=== PATIENT | male | born 1950 | race Caucasian/White ===

== ENCOUNTER → 2016-10-27 | Outpatient (CLI) | payer MEDICARE, BC ==
[2016-10-27 10:06] LABS: Anion Gap 12 mmol/L; Blood Urea Nitrogen 18 mg/dL (9-20); Calcium 9.1 mg/dL (8.4-10.2); Carbon Dioxide 20 mmol/L (22-30); Chloride 109 mmol/L (98-107); Glucose 102 mg/dL (74-99); Non-African American GFR(MDRD) >60 (>60 ml/min/1.73 sqM); Potassium 4.1 mmol/L (3.5-5.1); Sodium 141 mmol/L (137-145)
== END | disposition home or self-care (01) ==
LOC: LABWHC1 09:17
PROVIDERS: ATTEND Internal Medicine Cardiovascular Disease
DX: I25.10 Atherosclerotic heart disease of native coronary artery without angina pectoris (principal); I10 Essential (primary) hypertension; R06.02 Shortness of breath
CPT/HCPCS: 36415; 80048; 83880

== ENCOUNTER → 2017-07-30 | Outpatient (CLI) | payer MEDICARE, BC ==
[2017-07-30 08:05] LABS: Blood Urea Nitrogen 19 mg/dL (9-20)
== END | disposition home or self-care (01) ==
LOC: LABWHC1 07:00
PROVIDERS: ATTEND Internal Medicine Gastroenterology
DX: R74.8 Abnormal levels of other serum enzymes (principal)
CPT/HCPCS: 36415; 82565; 84520

== ENCOUNTER → 2019-12-13 | Outpatient (CLI) | payer BC, MEDICARE ==
[2019-12-13 16:53] LABS: Albumin 4.6 g/dL (3.80-4.90); Albumin/Globulin Ratio 1.53 (1.60-3.17); Bilirubin, Conjugated 0.3 mg/dL (0.20-0.40); Bilirubin,Unconjugated 0.7 mg/dL; Chol/HDL Ratio 4.64; LDL Cholesterol,Calculated 125.8 mg/dL (0.0-131.0); Total Protein 7.6 g/dL (6.2-8.2); VLDL Calculation 34.2 mg/dL (5.00-40.00)
== END | disposition home or self-care (01) ==
LOC: LABWHC1 09:59
PROVIDERS: ATTEND Internal Medicine Cardiovascular Disease
DX: I10 Essential (primary) hypertension (principal); E66.9 Obesity, unspecified; I25.10 Atherosclerotic heart disease of native coronary artery without angina pectoris; R01.1 Cardiac murmur, unspecified; F17.211 Nicotine dependence, cigarettes, in remission
CPT/HCPCS: 36415; 80061; 80076; 82550

== ENCOUNTER → 2020-12-31 | Outpatient (CLI) | payer MEDICARE, BC ==
--- NOTE | 2020-12-31 15:05 | XR ---
Bilateral hips HISTORY: Pain 2 views of each hip Bone mineralization and alignment are maintained. Joint spaces maintained. Probable vascular calcific ations noted incidentally. No fracture or dislocation. impression: No definite abnormality is evident
--- NOTE | 2020-12-31 15:06 | XR ---
Lumbosacral spine HISTORY: Pain Views of lumbosacral spine There is a dextroscoliosis centered at L2, rotatory component. No evident spondylolysis. Lumbar verte bral bodies show preserved height. Alignment is maintained. Loss of disc height is present interverte bral levels. Sclerosis in the posterior elements is consistent with facet arthropathy. Bone mineraliz ation is maintained. L5 is sacralized. Atherosclerotic vascular calcifications present in the aorta i liac distribution. IMPRESSION: Degenerative disc disease and facet arthropathy.
== END | disposition home or self-care (01) ==
LOC: RADXRMAIN 14:29
PROVIDERS: ATTEND Pediatrics
DX: M25.551 Pain in right hip (principal); M25.552 Pain in left hip; M51.36 Other intervertebral disc degeneration, lumbar region; M47.816 Spondylosis without myelopathy or radiculopathy, lumbar region
CPT/HCPCS: 72110; 73521

== ENCOUNTER → 2021-01-16 | Outpatient (CLI) | payer MEDICARE ==
--- NOTE | 2021-01-16 16:43 | CONS ---
CONSULTATION DATE OF SERVICE: 01/16/2021 This 70-year-old gentleman has been evaluated in [facility] for possible obstructive sleep apnea-hypopnea syndrome. HISTORY OF PRESENT ILLNESS/SLEEP-WAKE EVALUATION: Patient's usual sleep schedule is from 9 or 10 p.m. until 7 or 8 a.m. He sometimes has problems with falling asleep, although no TV in bedroom. He usually sleeps on the side position. He snores. No witnessed episodes of stopped breathing during sleep, but the patient wakes up from sleep 5 times with nocturia. Positive history of grinding teeth, according to patient. During the day he drinks about 6 cups of coffee. [place] Sleepiness Scale with this amount of caffeine is 6. PAST MEDICAL HISTORY: Positive for hypertension, acid reflux. PAST SURGICAL HISTORY: Cholecystectomy 5 years ago, hernia repair, tonsillectomy. CURRENT MEDICATIONS: 1. Omeprazole 40 mg once a day. 2. Amlodipine 10 mg once a day. 3. Cetirizine 10 mg once a day. 4. The patient also takes melatonin 5 mg at bedtime. SOCIAL HISTORY: Positive for smoking in the past. Quit smoking in 1988. Alcohol consumption occasional. FAMILY HISTORY: Positive for colon carcinoma and esophageal carcinoma. REVIEW OF SYSTEMS: No fevers. No double vision. No recent chest pain. No shortness of breath. No abdominal pain. No bleeding episodes. No blood in the urine. No seizure episodes. Multiple awakenings from sleep, episodes of tiredness and sleepiness during the day. PHYSICAL EXAMINATION: GENERAL: Pleasant gentleman without distress. VITAL SIGNS: BP 127/67, HR 70, RR 16, height 5 feet 9-1/2 inches, weight 281 pounds. Body mass index 40.9. Temperature 98.3, oxygen saturation at room air 97%. HEENT: PERRLA, EOMI, evaluation of oropharynx showed tongue protrudes midline. Low position of soft palate; Mallampati III to IV. NECK: Supple, no JVD. Thyroid is not palpable. Neck is wide; 18 inches in circumference. LUNGS: Clear to percussion and to auscultation. Good air exchange. No wheezing or rhonchi. HEART: S1, S2 regular. No murmurs, gallops, or rubs. ABDOMEN: Obese. EXTREMITIES: No clubbing or cyanosis. 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 Cranial nerves 2 to 7 intact. There is no fasciculation or atrophy. noted. No focal deficits observed. IMPRESSION: 1. Snoring, multiple awakenings from sleep with nocturia, extremely low position of soft palate, Mallampati III to IV, wide neck, 18 inches in circumference, episodes of sleepiness during the day while on 6 cups of coffee; obstructive sleep apnea- hypopnea syndrome. 2. Obesity; body mass index 40.9. 3. Hypertension. 4. Acid reflux. 5. Status post cholecystectomy 5 years ago. 6. Status post hernia repair. 7. Status post tonsillectomy. PLAN: 1. Polysomnography for evaluation of patient's breathing during sleep. 2. CPAP/BiPAP titration if sleep study confirms obstructive sleep apnea-hypopnea syndrome. 3. Preferable position during sleep on the side. 4. No driving if patient feels any sleepiness. 5. I will see patient for follow up visit to explain results of testing and following plan. Thank you very much for referring this patient for consultation. Sincerely, Chidi Garcia MD, PhD, FAASM Diplomat of [employer] Sleep Medicine [employer] of [employer] Medicare [facility] [place] MMODL / IJN: [id number] /
== END ==
LOC: SLEEP 15:24
PROVIDERS: ATTEND Internal Medicine
DX: G47.33 Obstructive sleep apnea (adult) (pediatric) (principal); E66.9 Obesity, unspecified; I10 Essential (primary) hypertension; K21.9 Gastro-esophageal reflux disease without esophagitis; Z68.41 Body mass index [BMI] 40.0-44.9, adult; Z90.49 Acquired absence of other specified parts of digestive tract; Z98.890 Other specified postprocedural states; Z90.89 Acquired absence of other organs
CPT/HCPCS: 99211

== ENCOUNTER → 2023-04-01 | Outpatient (CLI) | payer MEDICARE ==
[2023-04-01 16:16] LABS: Basophils # (A) 0.07 X 10*3/uL (0.00-0.10); Eosinophils # (A) 0.24 X 10*3/uL (0.04-0.35); Eosinophils % (A) 3.3 %; HGB 14.4 g/dL (13.0-17.0); Lymphocytes # (A) 2.16 X 10*3/uL (0.90-5.00); Lymphocytes % (A) 29.4 %; MCH 31.2 pg (27.0-32.0); MCHC 33.5 g/dL (32.0-37.0); MCV 93.1 FL (80.0-97.0); Mean Platelet Volume 10.2 FL (9.5-12.2); Monocytes # (A) 0.82 X 10*3/uL (0.20-1.00); Monocytes % (A) 11.2 %; NRBC Per 100 WBC 0 X 10*3/uL (0.00-0.01); Neutrophils # (A) 4.04 X 10*3/uL (1.80-7.70); Neutrophils % (A) 54.8 %; Platelet Count 227 X 10*3/uL (140-440); RBC 4.62 X 10*6/uL (4.40-5.60); RDW 13.2 % (11.5-14.5); WBC 7.35 X 10*3/uL (4.50-10.00)
[2023-04-01 16:52] LABS: ALT 43 U/L (10-49); AST 31 U/L (14-35); Albumin 4.7 g/dL (3.8-4.9); Albumin/Globulin Ratio 1.52 Ratio (1.60-3.17); Alkaline Phosphatase 83 U/L (41-126); BUN/Creat Ratio 16.45 Ratio (12.00-20.00); Blood Urea Nitrogen 18.1 mg/dL (9.0-27.0); Calcium 9.6 mg/dL (8.7-10.3); Carbon Dioxide 26.4 mmol/L (21.6-31.8); Chloride 103 mmol/L (96-109); Chol/HDL Ratio 6.04 Ratio; Globulin 3.1 g/dL (1.6-3.3); Glucose 99 mg/dL (70-110); LDL Cholesterol,Calculated 141.1 mg/dL (0.0-131.0); Potassium 4.8 mmol/L (3.5-5.5); Sodium 140 mmol/L (135-145); Total Bilirubin 0.8 mg/dL (0.3-1.2); Total Protein 7.8 g/dL (6.2-8.2)
== END | disposition home or self-care (01) ==
LOC: LABWHC1 08:54
PROVIDERS: ATTEND Pediatrics
DX: I10 Essential (primary) hypertension (principal); E55.9 Vitamin D deficiency, unspecified; E78.5 Hyperlipidemia, unspecified
CPT/HCPCS: 36415; 80053; 80061; 82306; 85025

== ENCOUNTER → 2024-09-13 | Outpatient (CLI) | payer MEDICARE ==
--- NOTE | 2024-09-13 12:36 | XR ---
EXAMINATION TYPE: XR chest 2V DATE OF EXAM: 09/13/2024 12:13 PM COMPARISON: Chest radiographs from 02/18/2010 CLINICAL INDICATION: Male, 74 years old with history of J449 COPD; TECHNIQUE: XR chest 2V Frontal and lateral views of the chest. FINDINGS: Exam is rotated. Lungs/Pleura: Prominent interstitial lung markings are seen scattered throughout the lungs. No eviden ce of focal consolidation, pneumothorax or pleural effusion. Pulmonary vascularity: Unremarkable. Heart/mediastinum: Cardiomediastinal silhouette is unremarkable. Musculoskeletal: No acute osseous pathology. Other findings: None IMPRESSION: Rotated exam interstitial prominence in the lung bases. That in the basis of scarring/pulmonary fibro sis. [facility], , 09/13/2024 12:33 PM
== END | disposition home or self-care (01) ==
LOC: RADXRYALE 12:03
PROVIDERS: ATTEND Pediatrics
DX: J44.9 Chronic obstructive pulmonary disease, unspecified (principal); J84.10 Pulmonary fibrosis, unspecified
CPT/HCPCS: 71046